=== PATIENT | male | born 1960 | race Caucasian/White ===

== ENCOUNTER 2022-06-26 15:54 | Outpatient (REF) | payer OTHER, SELFPAY ==
--- NOTE | ~2022-06-26 | XR_ITS ---
EXAMINATION: XR CERVICAL SPINE CLINICAL INFORMATION: Radiculopathy in the cervical spine COMPARISON: None TECHNIQUE: 6 views of the cervical spine, inclusive of flexion and extension views, were obtained. FINDINGS: Vertebral bodies are well aligned and intervertebral discs preserved except of mild narrowing seen at the level of C5-C6 more prominent C6-C7. There is no evidence of spondylolysis or spondylolisthesis. There is mild neural foramina narrowing bilaterally at the level of C6-C7. Soft tissues are unremarkable. There is no fractures or dislocations seen. XR/XR cervical spine min 6V IMPRESSION: Degenerative changes at the level of C5-C6 and C6-C7
== END 2022-06-26 15:55 | disposition home or self-care (01) ==
LOC: HO.XRAY 15:54
PROVIDERS: Visit Provider Nurse Practitioner Family
DX: M54.12 Radiculopathy, cervical region (principal)
CPT/HCPCS: 72052

== ENCOUNTER 2022-10-11 11:39 | Outpatient (REF) | payer SELFPAY ==
--- NOTE | 2022-10-11 09:15 | EMG_ITS ---
Please see scanned EMG / Nerve Conduction Report. MTDD
== END 2022-10-11 11:40 | disposition home or self-care (01) ==
LOC: HO.NEURO 11:39
PROVIDERS: Visit Provider Nurse Practitioner Family
DX: M43.02 Spondylolysis, cervical region (principal); I65.23 Occlusion and stenosis of bilateral carotid arteries; G62.9 Polyneuropathy, unspecified; M54.12 Radiculopathy, cervical region
CPT/HCPCS: 95885; 95910